=== PATIENT | female | born 1955 ===

== ENCOUNTER 2016-10-28 10:52 | Outpatient (CLI) | payer MEDICARE ==
--- NOTE | 2016-10-28 13:09 | Mammography Report ---
Bilateral mammogram: No previous studies of the liver. CAD study placed. Findings: Predominance of adipose tissue bilaterally. Focal ill-defined density upper inner posterior left breast. No microcalcifications. Benign axilla. Impression: Focal ill-defined density left breast. Comparison with previous studies is recommended. If previous studies are not available spot mag and if necessary sonographic examination advised. BI-RADS CATEGORY: 0 = Needs additional imaging evaluation ACR BI-RADS MAMMOGRAPHIC CODES: 0 = Needs additional imaging evaluation; 1 = Negative; 2 = Benign; 3 = Probably benign; 4 = Suspicious; 5 = Malignant; 6 = Known biopsy-proven malignancy COMMENT: 1. Dense breast tissue, i.e., adenosis, fibrocystic changes, etc., may obscure an underlying neoplasm. 2. Approximately 10% of cancers are not detected with mammography. 3. A negative mammography report should not delay biopsy if a clinically suspicious mass is present. COMMENT: Patient follow-up letters are generated in [employer].
== END 2016-10-28 10:53 | disposition home or self-care (01) ==
LOC: SPVWC 10:52
DX: Z12.31 Encounter for screening mammogram for malignant neoplasm of breast (principal)
CPT/HCPCS: 77067; G0202